=== PATIENT | male | born 1980 | race American Indian/Alaskan Native ===

== ENCOUNTER 2019-08-21 19:51 | Emergency (ER) | payer SELFPAY ==
--- NOTE | 2019-08-21 20:41 | Emergency Department Report ---
{null, Blank Doc - Documentation Documentation: 39-year-old male that presents with unctrolled HTHn, dizziness, and headache. This initial assessment/diagnostic orders/clinical plan/treatment(s) is/are subject to change based on patient's health status, clinical progression and re- assessment by fellow clinical providers in the ED. Further treatment and workup at subsequent clinical providers discretion. Patient/guardians urged not to elope from the ED as their condition may be serious if not clinically assessed and managed. Initial orders include: 1- Patient sent to [facility] for further evaluation and treatment 2- CT head 3- labs }
[2019-08-21 21:31] LABS: Basophils % (Auto) 0.6 % (0.0-1.8); Eosinophils # (Auto) 0.1 K/mm3 (0.0-0.4); Eosinophils % (Auto) 2.3 % (0.0-4.3); Hematocrit 36.4 % (35.5-45.6); Hemoglobin 12.4 gm/dl (11.8-15.2); Lymphocytes # (Auto) 2.4 K/mm3 (1.2-5.4); Lymphocytes % (Auto) 38.5 % (13.4-35.0); Mean Corpuscular HGB Conc 34 % (32-34); Mean Corpuscular Volume 88 fl (84-94); Monocytes # (Auto) 0.9 K/mm3 (0.0-0.8); Monocytes % (Auto) 14.4 % (0.0-7.3); Platelet Count 225 K/mm3 (140-440); Red Blood Count 4.15 M/mm3 (3.65-5.03); Red Cell Distribution Width 13.2 % (13.2-15.2)
--- NOTE | 2019-08-21 21:36 | Cat Scan Report ---
{null, CT head/brain wo con INDICATION / CLINICAL INFORMATION: 39 years Male; headache/dizziness. TECHNIQUE: Routine CT head without contrast. All CT scans at this location are performed using CT dos e reduction for ALARA by means of automated exposure control. COMPARISON: None. FINDINGS: BRAIN / INTRACRANIAL CONTENTS: Punctate calcification seen in the posterior sylvian fissure on the le ft-this should be of no clinical significance. Small lacunar infarcts seen in the lentiform nucleus on the right. There may be a small lacunar infar ct in the ronald leftward of midline. Otherwise, no acute hemorrhage, mass effect, midline shift, hydrocephalus, or acute, large territori al infarct. No chronic infarct or atrophy appreciated. There are mild areas of decreased attenuation in the white matter of the cerebral hemispheres, as wel l as the gangliocapsular regions. These are nonspecific findings and may be related to microangiopath y (hypertension, diabetes, atherosclerosis), given the patient's age. The infundibulum in the suprasellar cistern appears to be mildly prominent in size. Dedicated pre and postcontrast MRI of the pituitary may be helpful for further evaluation-this could be performed on a n outpatient basis. CRANIOCERVICAL JUNCTION: No significant abnormality. ORBITS: No significant abnormality of visualized orbits. SINUSES / MASTOIDS: No significant abnormality the visualized paranasal sinuses or mastoid air cells. ADDITIONAL FINDINGS: Small metallic BB is seen in the subcutaneous soft tissues superficial to the ri ght parietal bone, somewhat more superiorly. IMPRESSION: 1. No focal intra-axial mass, hemorrhage, hydrocephalus, or acute, large territorial infarct. 2. Prominent infundibulum suspected. Comparison with remote films would be helpful if available. Foll ow-up as clinically warranted. Signer Name: Ed Lamb MD, III Signed: 08/21/2019 9:31 PM Workstation Name: [email or web address] }
[2019-08-21 21:56] LABS: BUN/Creatinine Ratio 16; Blood Urea Nitrogen 16 mg/dL (9-20); Calcium 9.2 mg/dL (8.4-10.2); Hemolysis Index 11
[2019-08-21] MEDS ORDERED: amLODIPine 5 MG TAB PO ONE (22:58)
[2019-08-21] MEDS ORDERED: cloNIDine 0.2 MG TAB PO ONE (22:58)
--- NOTE | 2019-08-21 23:05 | Emergency Department Report ---
{null, ED General Adult HPI - General Chief complaint: High BP Stated complaint: HTN Time Seen by Provider: 08/21/19 20:40 Source: patient Mode of arrival: Ambulatory Limitations: No Limitations - History of Present Illness Initial comments: 39-year-old obese -Tong[place] male presents to the emergency room complaining of headache and high blood pressure blurred vision. Patient reports that he has been out of his hypertensive medicine for the last 3 days. Patient states that his blood pressure medications are at the pharmacy it he just needs to pick them up. Prescriptions from [facility] were written on 08/06/2019. Onset/Timin -: days(s), This evening Location: head Severity scale (0 -10): 7 Quality: aching Consistency: intermittent Associated Symptoms: headaches. denies: nausea/vomiting Treatments Prior to Arrival: none - Related Data Allergies Allergy/AdvReac Type Severity Reaction Status Date / Time iodine Allergy Anaphylaxis Verified 08/21/19 20:02 lisinopril Allergy Anaphylaxis Verified 08/21/19 20:02 ED Review of Systems ROS: Stated complaint: HTN Other details as noted in HPI Comment: All other systems reviewed and negative ED Past Medical Hx - Past Medical History Previous Medical History?: Yes Hx Hypertension: Yes Hx Asthma: Yes - Surgical History Past Surgical History?: No - Social History Smoking Status: Current Every Day Smoker Substance Use Type: None ED Physical Exam - General Limitations: No Limitations General appearance: alert, in no apparent distress - Head Head exam: Present: atraumatic, normocephalic - Eye Eye exam: Present: normal appearance - ENT ENT exam: Present: mucous membranes moist - Respiratory Respiratory exam: Present: normal lung sounds bilaterally. Absent: respiratory distress - Cardiovascular Cardiovascular Exam: Present: regular rate, normal rhythm. Absent: systolic murmur, diastolic murmur, rubs, gallop - Neurological Exam Neurological exam: Present: alert, oriented X3 - Expanded Neurological Exam Expanded Patient oriented to: Present: person, place, time Cranial nerves: EOM's Intact: Normal, Gag Reflex: Normal, Tongue Deviation: Normal, Nystagmus: Normal, Facial Sensation: Normal, Facial Palsy with Forehead Movement: Normal, Facial Palsy without Forehead Movement: Normal Cerebellar function: Finger to Nose: Normal, Heel to [place]: Normal, Romberg: Normal Upper motor neuron: Kel Neglect: Normal, Pronator Drift: Normal, Sensory Extinction: Normal Sensory exam: Upper Extremity Light Touch: Normal, Upper Extremity Pin Prick: Normal, Upper Extremity Temperature: Normal, UE 2 Point Discrimination: Normal, Lower Extremity Light Touch: Normal, Lower Extremity Pin Prick: Normal, Lower Extremity Temperature: Normal, LE 2 Point Discrimination: Normal Motor strength exam: RUE: 4, LUE: 4, RLE: 4, LLE: 4 Best Eye Response (Krysten): (4) open spontaneously Best Motor Response (Krysten): (6) obeys commands Best Verbal Response ([place]): (5) oriented [place] Total: 15 - Psychiatric Psychiatric exam: Present: normal affect, normal mood - Skin Skin exam: Present: warm, dry, intact, normal color. Absent: rash ED Course Vital Signs 08/21/19 08/21/19 08/21/19 19:57 23:12 23:15 Temperature 98.3 F Pulse Rate 91 H 83 83 Respiratory 20 Rate Blood Pressure 173/113 162/90 162/90 Blood Pressure [Right] O2 Sat by Pulse 96 Oximetry 08/22/19 00:02 Temperature Pulse Rate 78 Respiratory 17 Rate Blood Pressure Blood Pressure 157/101 [Right] O2 Sat by Pulse 97 Oximetry ED Medical Decision Making - Lab Data Result diagrams: 08/21/19 21:12 08/21/19 21:12 - Medical Decision Making 39-year-old obese -Tong[place] male presents to the emergency room complaining of headache and high blood pressure blurred vision. Patient reports that he has been out of his hypertensive medicine for the last 3 days. Patient states that his blood pressure medications are at the pharmacy it he just needs to pick them up. Prescriptions from [facility] were written on 08/06/2019. CT negative for any acute findings. Patient will be given clonidine 0.2 mg and Norvasc 10 mg for elevated blood pressure. Critical care attestation.: If time is entered above; I have spent that time in minutes in the direct care of this critically ill patient, excluding procedure time. ED Disposition Clinical Impression: Uncontrolled hypertension, Noncompliance with medication regimen Disposition: - TO HOME OR SELFCARE Is pt being admited?: No Does the pt Need Aspirin: No Condition: Stable Instructions: Hypertension (ED) Additional Instructions: Please fill your prescription and take your medication as prescribed. Follow-up with the orthopedic provider as well as your primary care provider. Referrals: [facility] [Other] - 3-5 Days }
[2019-08-22 02:20] VITALS: BP 150/98
== END 2019-08-22 01:10 | disposition home or self-care (01) ==
LOC: ED 19:51
DX: I10 Essential (primary) hypertension (principal); J45.909 Unspecified asthma, uncomplicated; F17.200 Nicotine dependence, unspecified, uncomplicated; Z88.6 Allergy status to analgesic agent
CPT/HCPCS: 36415; 70450; 80048; 85025